=== PATIENT | female | born 1955 | race Caucasian/White ===

== ENCOUNTER 2018-08-20 00:11 | Emergency (ER) | payer BC ==
[~2018-08-20] VITALS: Ht 172.7 cm; Wt 98.4 kg
[2018-08-20 00:11] VITALS: BP_SYST 137
[~2018-08-20 00:11] MED LIST: ESCI10TA PO; LISI-600 PO; PROG200C15 PO; SITA100T11 PO; ZOLP5TAB2 PO
--- NOTE | 2018-08-20 00:11 | NUR ---
Patient to ER bed 8 to gown for evaluation. Side rails up.
--- NOTE | 2018-08-20 00:15 | NUR ---
C-collar placed per MD order.
--- NOTE | 2018-08-20 00:20 | NUR ---
Pt fell down 7 flights of steps last night around 2330. Reports that she hit her head against the floor at the bottom of the staircase. Reports she LOC for 3 minutes. C/O of neck pain, COLE, left wrist and hand pain and L ankle pain. Reports some nausea but it has resolved. Denies SOB, chest pain, n/v/d or fever. No other complaints/injuries noted. Will cont. to monitor.
[2018-08-20] MEDS ORDERED: DEXTROSE 50% JECT 50 ML DISP.SYRIN IVP ONE (01:00)
[2018-08-20 01:16] LABS: BASOPHILS # (AUTO) 0.1 K/uL (0.0-0.2); BASOPHILS % (AUTO) 0.8 % (0.0-2.0); EOSINOPHILS # (AUTO) 0.4 K/uL (0.0-0.4); EOSINOPHILS % (AUTO) 3.7 % (0.0-4.0); HEMATOCRIT 37.2 % (36-48); HEMOGLOBIN 12.7 g/dL (12.0-16.0); LYMPHOCYTES # (AUTO) 2.9 K/uL (1.0-5.5); MEAN CORPUSCULAR HEMOGLOBIN 32 pg (27-31); MEAN CORPUSCULAR HGB CONC 34 % (32-36); MEAN CORPUSCULAR VOLUME 94 fL (79.0-98.0); MONOCYTES # (AUTO) 0.8 K/uL (0.0-1.0); MONOCYTES % (AUTO) 7.4 % (1.7-9.3); NEUTROPHILS # (AUTO) 6.3 K/uL (1.8-7.7); NEUTROPHILS % (AUTO) 60.1 % (40.0-70.0); PLATELET COUNT (AUTO) 222 K/uL (130-430); RED BLOOD CELL COUNT(AUTO) 3.94 MIL/uL (4.2-6.2); RED CELL DISTRIBUTION WIDTH 13.5 % (9.0-15.0); WHITE BLOOD COUNT (AUTO) 10.4 K/uL (4.8-10.8)
--- NOTE | 2018-08-20 01:16 | NUR ---
xray at bedside.
[2018-08-20] MEDS ORDERED: SITA50TA3 PO (01:33)
[2018-08-20] MEDS ORDERED: ESTR2TAB5 PO (01:33)
[2018-08-20] MEDS ORDERED: PRAS1TAB2 PO (01:33)
[2018-08-20] MEDS ORDERED: T4/T3 PO (01:33)
[2018-08-20] MEDS ORDERED: ESCI10TA PO (01:33)
[2018-08-20] MEDS ORDERED: ALPR0.5T PO (01:33)
[2018-08-20] MEDS ORDERED: LISI-600 PO (01:33)
[2018-08-20] MEDS ORDERED: TRAV2.5D BOTH EYES (01:33)
[2018-08-20] MEDS ORDERED: PROG200C7 PO (01:33)
[2018-08-20 01:34] LABS: CALCIUM 9.1 mg/dL (8.4-11.0); POTASSIUM 3.7 mmol/L (3.5-5.1)
[2018-08-20 01:38] LABS: ALBUMIN 3.3 g/dL (3.4-4.8); TOTAL BILIRUBIN 0.2 mg/dL (0.0-1.0)
--- NOTE | 2018-08-20 02:03 | NUR ---
Pt went to CT scan via [employer]. Tolerated well. Will cont. to monitor.
[2018-08-20] MEDS ORDERED: HYDROcodone/ACETAMIN 5-325 MG TAB (NORCO/ VICODIN) PO ONE ×2 (02:30→06:45)
[2018-08-20] MEDS ORDERED: KETOROLAC TROMETHAMINE 30 MG VIAL IVP ONE (02:30)
--- NOTE | 2018-08-20 02:30 | NUR ---
Received report from MAHESH Swan. Patient given pain medication, patients family at bedside. Will continue to follow up. Patient in good spirits, and calm.
--- NOTE | 2018-08-20 03:45 | NUR ---
Patient resting comfortably. Needs are met at this time. Family at bedside.
--- NOTE | 2018-08-20 04:15 | NUR ---
Patient resting comfortably. Needs are met at this time. Patient calm and cooperative, and family at bedside. Patient encouraged to let us know if needs arise.
--- NOTE | 2018-08-20 05:30 | NUR ---
Short leg posterior splint applied to left leg. +2 DP and PT pulse noted. Capillary refill <3 seconds. Patient has ability to move non-splinted digits. Has sensation present to affected site. Skin color within normal limits. Applied for pain management control.
--- NOTE | 2018-08-20 05:48 | NUR ---
Patient taken to CT scan for CT head.
--- NOTE | 2018-08-20 05:57 | NUR ---
Patient returned to room after exam. Will continue to follow up and monitor.
--- NOTE | 2018-08-20 06:38 | NUR ---
Report received from radiology regarding head CT, report given to .
--- NOTE | 2018-08-20 06:41 | NUR ---
DALIA Gonzalez at bedside discussing results with patient.
[2018-08-20] MEDS ORDERED: ACETAMINOPHEN 500 MG TABLET PO ONE (06:45)
[2018-08-20] MEDS ORDERED: ONDANSETRON 4 MG ODT TAB PO ONE (06:45)
--- NOTE | 2018-08-20 06:53 | NUR ---
Patient given written and verbal discharge instructions and verbalizes understanding. ER MD discussed with patient the results and treatment provided. Patient in stable condition. ID arm band removed. IV catheter removed intact and dressing applied, no active bleeding. Rx of Naproxen and Flexeril given. Patient educated on pain management and to follow up with PMD. Pain Scale 5/10, given pain medications prior to discharge, son is driving patient home. Opportunity for questions provided and answered. Medication side effect fact sheet provided.
[2018-08-20 06:54] VITALS: BP_SYST 142
== END 2018-08-20 06:54 | disposition home or self-care (01) ==
LOC: SED 00:11
DX: S62.327A Displaced fracture of shaft of fifth metacarpal bone, left hand, initial encounter for closed fracture (principal); S99.912A Unspecified injury of left ankle, initial encounter; S09.90XA Unspecified injury of head, initial encounter; E11.9 Type 2 diabetes mellitus without complications; I10 Essential (primary) hypertension; E03.9 Hypothyroidism, unspecified; Z88.1 Allergy status to other antibiotic agents; Z79.899 Other long term (current) drug therapy; W10.8XXA Fall (on) (from) other stairs and steps, initial encounter; Y93.89 Activity, other specified; Y92.89 Other specified places as the place of occurrence of the external cause; Y99.8 Other external cause status
CPT/HCPCS: 29125; 36415; 70450; 71045; 72125; 73110; 73130; 73610; 80053; 84484; 85025; 87040; 93005; 96374; 96375; 99284; J1885; Q0162

== ENCOUNTER 2023-05-27 23:20 | Emergency (ER) | payer BC ==
[~2023-05-27] VITALS: Ht 170.2 cm; Wt 113.4 kg
[~2023-05-27 23:20] MED LIST changes: +ALPR0.5T PO; +ESTR2TAB5 PO; -LISI-600 PO; +LISI20TA30 PO; +PRAS1TAB2 PO; +PROG200C11 PO; -PROG200C15 PO; +PROG200C36 PO; +SITA50TA3 PO; +T4/T3 PO; +TRAV2.5D BOTH EYES
[2023-05-27 23:26] VITALS: PULSE 91; RESP 16; TEMP 99.5; O2SAT 99
[2023-05-28 00:30] LABS: CALCIUM 8.6 mg/dL (8.4-11.0); CREATININE 0.95 mg/dL (0.55-1.30); POTASSIUM 4.1 mmol/L (3.5-5.1)
[2023-05-28 00:34] LABS: ALBUMIN 3.1 g/dL (3.4-4.8); BASOPHILS # (AUTO) 0.1 K/uL (0.0-0.2); BASOPHILS % (AUTO) 0.8 % (0.0-2.0); BILIRUBIN,DIRECT 0.1 mg/dL (0.0-0.3); EOSINOPHILS # (AUTO) 0.8 K/uL (0.0-0.4); EOSINOPHILS % (AUTO) 10.7 % (0.0-4.0); HEMATOCRIT 35.1 % (36-48); HEMOGLOBIN 11.9 g/dL (12.0-16.0); LYMPHOCYTES # (AUTO) 1.5 K/uL (1.0-5.5); LYMPHOCYTES % (AUTO) 19.1 % (20.5-51.5); MEAN CORPUSCULAR HEMOGLOBIN 31 pg (27-31); MEAN CORPUSCULAR HGB CONC 34 % (32-36); MEAN CORPUSCULAR VOLUME 92 fL (79.0-98.0); MONOCYTES # (AUTO) 0.4 K/uL (0.0-1.0); MONOCYTES % (AUTO) 5.5 % (1.7-9.3); NEUTROPHILS % (AUTO) 63.9 % (40.0-70.0); PLATELET COUNT (AUTO) 244 K/uL (130-430); RED BLOOD CELL COUNT(AUTO) 3.81 MIL/uL (4.2-6.2); RED CELL DISTRIBUTION WIDTH 13.5 % (9.0-15.0); TOTAL BILIRUBIN 0.2 mg/dL (0.0-1.0); TOTAL PROTEIN, SERUM 7.1 g/dL (6.4-8.3); WHITE BLOOD COUNT (AUTO) 7.9 K/uL (4.8-10.8)
[2023-05-28 00:35] LABS: INR 0.9 (0.8-1.2); PROTHROMBIN TIME 9.3 SECS (9.5-12.5)
[2023-05-28 01:11] LABS: BILIRUBIN,URINE NEGATIVE (NEGATIVE); BLOOD, URINE 3+ (NEGATIVE); CLARITY/URINE SL CLOUDY (CLEAR); COLOR,URINE YELLOW (YELLOW); GLUCOSE,URINE NEGATIVE (NEGATIVE); KETONES,URINE NEGATIVE (NEGATIVE); LEUKOCYTE ESTERASE ,URINE NEGATIVE (NEGATIVE); NITRITE, URINE NEGATIVE (NEGATIVE); PH,URINE 5.5 (5.0-8.0); PROTEIN URINE TRACE (NEGATIVE); UROBILINOGEN,URINE 0.2 (0.2-1.0)
[2023-05-28] MEDS ORDERED: NAPR-1172 PO (01:33)
[2023-05-28 01:35] VITALS: BP_SYST 148; PULSE 88; RESP 16; TEMP 99.5; O2SAT 98
[2023-05-28 02:07] LABS: BACTERIA,URINE None Seen /HPF (None Seen); RBC,URINE >100 /HPF (0-3)
== END 2023-05-28 01:33 | disposition home or self-care (01) ==
LOC: SED 23:20
DX: N93.8 Other specified abnormal uterine and vaginal bleeding (principal); I10 Essential (primary) hypertension; E11.9 Type 2 diabetes mellitus without complications; E03.9 Hypothyroidism, unspecified; Z88.1 Allergy status to other antibiotic agents
CPT/HCPCS: 36415; 76856; 80048; 80076; 81000; 81001; 81015; 85025; 85610; 85730; 99284

== ENCOUNTER 2023-08-12 20:08 | Emergency (ER) | payer BC ==
[~2023-08-12] VITALS: Ht 172.7 cm; Wt 115.7 kg
[~2023-08-12 20:08] MED LIST changes: +NAPR-1172 PO
[2023-08-12 20:18] VITALS: BP_SYST 139; PULSE 94; RESP 18; TEMP 98.9; O2SAT 97
[2023-08-12 21:03] LABS: BASOPHILS # (AUTO) 0.1 K/uL (0.0-0.2); BASOPHILS % (AUTO) 0.5 % (0.0-2.0); EOSINOPHILS # (AUTO) 0.1 K/uL (0.0-0.4); EOSINOPHILS % (AUTO) 0.7 % (0.0-4.0); HEMATOCRIT 33.9 % (36-48); HEMOGLOBIN 11.5 g/dL (12.0-16.0); LYMPHOCYTES % (AUTO) 23.3 % (20.5-51.5); MEAN CORPUSCULAR HEMOGLOBIN 32 pg (27-31); MEAN CORPUSCULAR HGB CONC 34 % (32-36); MEAN CORPUSCULAR VOLUME 93 fL (79.0-98.0); MONOCYTES % (AUTO) 7.6 % (1.7-9.3); NEUTROPHILS # (AUTO) 8.8 K/uL (1.8-7.7); NEUTROPHILS % (AUTO) 67.9 % (40.0-70.0); PLATELET COUNT (AUTO) 319 K/uL (130-430); RED BLOOD CELL COUNT(AUTO) 3.65 MIL/uL (4.2-6.2); WHITE BLOOD COUNT (AUTO) 12.9 K/uL (4.8-10.8)
[2023-08-12 21:16] LABS: INR 0.9 (0.8-1.2); PROTHROMBIN TIME 9.7 SECS (9.5-12.5)
[2023-08-12] MEDS ORDERED: PIPERACILLIN/TAZOBACTAM 3.375 GM/VIAL (ZOSYN) IV ONE (21:25)
[2023-08-12 21:38] LABS: BILIRUBIN,URINE NEGATIVE (NEGATIVE); CLARITY/URINE SL CLOUDY (CLEAR); COLOR,URINE YELLOW (YELLOW); GLUCOSE,URINE NEGATIVE (NEGATIVE); KETONES,URINE NEGATIVE (NEGATIVE); LEUKOCYTE ESTERASE ,URINE NEGATIVE (NEGATIVE); NITRITE, URINE NEGATIVE (NEGATIVE); PROTEIN URINE NEGATIVE (NEGATIVE); UROBILINOGEN,URINE 0.2 (0.2-1.0)
[2023-08-12 21:41] LABS: BLOOD, URINE TRACE (NEGATIVE)
[2023-08-12 21:53] LABS: BACTERIA,URINE FEW /HPF (None Seen); WBC,URINE 0-3 /HPF (0-3)
[2023-08-12 22:33] LABS: CREATININE 0.9 mg/dL (0.55-1.30); POTASSIUM 3.7 mmol/L (3.5-5.1); TOTAL BILIRUBIN 0.3 mg/dL (0.0-1.0); TOTAL PROTEIN, SERUM 8.1 g/dL (6.4-8.3)
[2023-08-12] MEDS: methylPREDNISolone SOD SUCC/PF 62.5 MG/ML VIAL IVP ONE (23:05)
[2023-08-12] MEDS: PIPERACILLIN/TAZO 3.375 GM in D5W 50 ML IV ONE (23:11)
[2023-08-13] MEDS ORDERED: CLE150 PO (04:33)
[2023-08-13 04:45] VITALS: TEMP 97.8
[2023-08-13 04:56] VITALS: BP_SYST 148; PULSE 75; RESP 19; O2SAT 95
== END 2023-08-13 04:56 | disposition home or self-care (01) ==
LOC: SED 20:08
DX: R22.1 Localized swelling, mass and lump, neck (principal); R68.84 Jaw pain; R50.9 Fever, unspecified; I10 Essential (primary) hypertension; E11.9 Type 2 diabetes mellitus without complications; E03.9 Hypothyroidism, unspecified; Z88.1 Allergy status to other antibiotic agents; Z79.899 Other long term (current) drug therapy; Z79.2 Long term (current) use of antibiotics
CPT/HCPCS: 99285; 70487; 96365; 96375; 80053; 81001; 85025; 85610; 85730; 87040; 87086; 36415; 93005; 70491; 83605; J2543; Q9967; 81000; 81015; J2930